=== PATIENT | female | born 1935 | race Caucasian/White ===

== ENCOUNTER 2017-05-31 11:46 | Inpatient (IN) | payer OTHER ==
[2017-05-31] VITALS (12 sets, daily range): BP systolic 82–106; BP diastolic 45–68; PULSE 67–82; TEMP 36.5–36.9; O2SAT 95–100; Ht 157.5 cm; Wt 57.6 kg
[~2017-05-31] VITALS: Ht 157.5 cm; Wt 57.6 kg
[~2017-05-31 11:46] MED LIST: ASPI1TAB83 PO; ATOR-24 PO; BROM0.07 OPR; COEN200C4 PO; GLUCTAB7 PO; MULT-506 PO; PRED1SUS3 OPR
[2017-05-31] MEDS ORDERED: SODIUM CHLORIDE 0.9% 1000ML 1,000 ML IV STA (11:51)
[2017-05-31] MEDS ORDERED: SODIUM CHLORIDE 0.9% 250ML 250 ML IV STA (11:51)
--- NOTE | 2017-05-31 12:06 | EMERGENCY ROOM VISIT NOTE ---
History Report prepared by Case: Maria Fernanda Cheung Under the Supervision of: Dr. Antonietta Najera M.D. First contact with patient: 11:43 Stated Complaint: gi bleed History of Present Illness The patient is an 81 year old female who presents to the Emergency Room with complaints of persistent vomiting that began yesterday. The patient states that she has a history of a stented coronary artery and is on 81 mg of aspirin daily. She states that over the past few days she has noticed abdominal pain so she stopped taking her aspirin. The patient denies any current abdominal pain. She states that yesterday she began noticing melanotic stools and began vomiting. The patient denies any history of previous GI bleeds and denies being on any other anti-coagulants. She denies any history of atrial fibrillation. The patient notes a slight fever last evening. She denies any choking from her emesis and denies any shortness of breath. The patient denies any previous blood transfusion. She reports dizziness upon standing. The patient reports nausea en-route to the emergency department and nursing staff reports that the patient was given 4 mg of Zofran which alleviated her nausea. The patient denies any history of atrial fibrillation. She denies any history of smoking. The patient states that she has had previous colonoscopies. Source of History: patient, nursing staff Onset: yesterday Position: other (global) Quality: other (vomiting) Timing: other (persistent) Associated Symptoms: + nausea, + melena, No abdominal pain Review of Systems See HPI for pertinent positives & negatives. A total of 10 systems reviewed and were otherwise negative. Past Medical & Surgical Medical Problems: (1) Hyperlipemia Surgical Problems: (1) Stented coronary artery Family History Noncontributory secondary to age Social History Smoking Status: Never Smoker Marital Status: Housing Status: lives with family Occupation Status: retired Current/Historical Medications Scheduled Aspirin (Aspirin), 81 MG PO QPM Atorvastatin (Lipitor), 40 MG PO QPM Allergies Coded Allergies: NO KNOWN DRUG ALLERGIES (Verified Allergy, Unknown, ., 05/31/17) Physical Exam Vital Signs Date Time Temp Pulse Resp B/P (MAP) Pulse Ox O2 Delivery O2 Flow Rate FiO2 05/31/17 14:32 36.6 72 16 93/53 100 3.0 05/31/17 14:17 36.6 69 16 95/48 100 3.0 05/31/17 14:06 36.8 75 16 102/52 95 3.0 05/31/17 13:55 36.6 77 16 106/48 97 Nasal Cannula 3.0 05/31/17 13:51 36.6 70 16 106/48 97 3.0 05/31/17 13:50 36.5 69 16 100/50 96 3.0 05/31/17 13:46 36.5 67 16 100/50 96 3.0 05/31/17 13:41 36.6 68 16 102/52 100 3.0 05/31/17 13:32 70 05/31/17 13:19 100 Nasal Cannula 2.0 05/31/17 12:46 70 16 100/47 100 Nasal Cannula 2.0 05/31/17 12:32 78 16 108/47 98 Nasal Cannula 05/31/17 12:13 82 05/31/17 12:06 84 18 97/65 92 Nasal Cannula 3.0 05/31/17 11:59 36.8 86 18 107/60 93 Nasal Cannula 2.0 Physical Exam Vital signs reviewed. Mildly hypoxic, mildly hypotensive General: Well-appearing female, in no significant distress. Pale HEENT: Dry blood in hair, some dry blood on naris. No scleral icterus, PERRLA, neck supple. Atraumatic. Cardiovascular: Regular rate and rhythm, no extra sounds. Pulmonary: Clear to auscultation bilaterally, normal work of breathing. Abdomen: Soft, nontender, nondistended, positive bowel sounds. Rectal: Dark, melanotic, guaiac positive stools. Musculoskeletal: Atraumatic, no peripheral edema. Neurologic: Patient awake alert and oriented x 3 Skin: Warm, dry, no rash Medical Decision & Procedures ER Provider Diagnostic Interpretation: X-ray results as stated below per interpretation by me and the radiologist: CHEST ONE VIEW PORTABLE CLINICAL HISTORY: UGI dyspnea COMPARISON STUDY: No previous studies for comparison. FINDINGS: The bones soft tissues and hemidiaphragms are normal. The cardiomediastinal silhouette is normal. The lungs are clear. The pulmonary vasculature is normal. IMPRESSION: Negative chest. The above report was generated using voice recognition software. It may contain grammatical, syntax or spelling errors. Electronically signed by: Bud Rich M.D. 05/31/2017 12:09 PM Dictated Date/Time: 05/31/2017 12:08 PM Laboratory Results 05/31/17 11:40 Red Blood Count 3.68, Mean Corpuscular Volume 88.0, Mean Corpuscular Hemoglobin 29.6, Mean Corpuscular Hemoglobin Concent 33.6, Mean Platelet Volume 9.7, Neutrophils (%) (Auto) 82.6, Lymphocytes (%) (Auto) 12.1, Monocytes (%) (Auto) 4.9, Eosinophils (%) (Auto) 0.0, Basophils (%) (Auto) 0.2, Neutrophils # (Auto) 12.38, Lymphocytes # (Auto) 1.82, Monocytes # (Auto) 0.73, Eosinophils # (Auto) 0.00, Basophils # (Auto) 0.03 05/31/17 11:40 Test 05/31/17 11:40 05/31/17 11:59 White Blood Count 14.99 K/uL (4.8-10.8) Red Blood Count 3.68 M/uL (4.2-5.4) Hemoglobin 10.9 g/dL (12.0-16.0) Hematocrit 32.4 % (37-47) Mean Corpuscular Volume 88.0 fL (80-100) Mean Corpuscular Hemoglobin 29.6 pg (25-34) Mean Corpuscular Hemoglobin Concent 33.6 g/dl (32-36) Platelet Count 247 K/uL (130-400) Mean Platelet Volume 9.7 fL (7.4-10.4) Neutrophils (%) (Auto) 82.6 % Lymphocytes (%) (Auto) 12.1 % Monocytes (%) (Auto) 4.9 % Eosinophils (%) (Auto) 0.0 % Basophils (%) (Auto) 0.2 % Neutrophils # (Auto) 12.38 K/uL (1.4-6.5) Lymphocytes # (Auto) 1.82 K/uL (1.2-3.4) Monocytes # (Auto) 0.73 K/uL (0.11-0.59) Eosinophils # (Auto) 0.00 K/uL (0-0.5) Basophils # (Auto) 0.03 K/uL (0-0.2) RDW Standard Deviation 46.1 fL (36.4-46.3) RDW Coefficient of Variation 14.2 % (11.5-14.5) Immature Granulocyte % (Auto) 0.2 % Immature Granulocyte # (Auto) 0.03 K/uL (0.00-0.02) Prothrombin Time 10.3 SECONDS (9.0-12.0) Prothromb Time International Ratio 1.0 (0.9-1.1) Activated Partial Thromboplast Time 21.5 SECONDS (21.0-31.0) Partial Thromboplastin Ratio 0.8 Est Creatinine Clear Calc Drug Dose 27.3 ml/min Estimated GFR () 44.9 Estimated GFR (Non- 38.7 BUN/Creatinine Ratio 24.5 (10-20) Calcium Level 9.0 mg/dl (8.5-10.1) Total Bilirubin 0.5 mg/dl (0.2-1) Direct Bilirubin 0.1 mg/dl (0-0.2) Aspartate Amino Transf (AST/SGOT) 26 U/L (15-37) Alanine Aminotransferase (ALT/SGPT) 30 U/L (12-78) Alkaline Phosphatase 86 U/L (45-117) Total Creatine Kinase 152 U/L (26-192) Creatine Kinase MB 2.1 ng/ml (0.5-3.6) Creatine Kinase MB Ratio 1.4 (0-3.0) Total Protein 6.8 gm/dl (6.4-8.2) Albumin 3.6 gm/dl (3.4-5.0) Bedside Hemoglobin 8.8 g/dl (12.0-16.0) Bedside Hematocrit 26 % (37-47) Bedside Sodium 142 mEq/L (135-144) Bedside Potassium 4.2 mEq/L (3.3-5.0) Bedside Chloride 107 mEq/L (101-112) Bedside Total CO2 23 mEq/l (24-31) Anion Gap 17.0 mmol/L (16-25) Bedside Blood Urea Nitrogen 28 mg/dl (7-18) Bedside Creatinine 1.1 mg/dl (0.6-1.3) Bedside Glucose (other) 128 mg/dl (70-99) Bedside Ionized Calcium (Yareli) 1.11 mmol/l (1.12-1.32) Laboratory results per my review. Medications Administered Medications (Trade) Dose Ordered Sig/Lashay Route Start Time Stop Time Status Last Admin Dose Admin Sodium Chloride 250 ml @ 999 mls/hr Q16M STAT IV 05/31/17 11:51 05/31/17 12:06 DC 05/31/17 11:51 999 MLS/HR Sodium Chloride 1,000 ml @ 125 mls/hr Q8H STAT IV 05/31/17 11:51 05/31/17 19:50 05/31/17 12:30 125 MLS/HR Pantoprazole Sodium (Protonix IV Bolus/Drip) 1 ea NOW STAT IV 05/31/17 11:51 05/31/17 11:54 DC 05/31/17 12:31 1 EA Pantoprazole Sodium 80 mg/ Dextrose 120 ml @ 480 mls/hr 1230 IV 05/31/17 12:30 05/31/17 12:44 DC 05/31/17 12:28 480 MLS/HR Pantoprazole Sodium 40 mg/ Dextrose 100 ml @ 20 mls/hr Q5H IV 05/31/17 12:45 05/31/17 17:44 05/31/17 12:31 20 MLS/HR ECG Indication: other (GI bleed) Rate (beats per minute): 86 Findings: nonspecific-ST abn (most prominent in lateral leads), prolonged QT, other (QTC 478) ED Course 1150: Past medical records reviewed. The patient was evaluated in room B1. A complete history and physical examination was performed. 1151: Ordered Pantoprazole Sodium 1 ea IV, Sodium Chloride 1000 ml @ 125 mls/hr IV, Sodium Chloride 250 mls/hr IV. 1158: At this time, I explained the risks and benefits of blood transfusions to the patient at this time. She verbalized completer understanding and agreement. She signed the consent at this time. 1211: I discussed the patients case with Dr. Arizmendi, Gastroenterology. He states that the patient should be evaluated for further treatment and he will come consult the patient. 1214: I reevaluated the patient and she is resting comfortably. I discussed the exam findings with her and I discussed the treatment plan. She verbalized complete understanding and agreement. She is going to be evaluated for further treatment. 1221: I discussed the patients case with Dr. Rodriguez, [facility] She is going to evaluate the patient for further treatment. 1230: Ordered Pantoprazole Sodium 80 mg/Dextrose 120 ml @ 480 mls/hr IV. 1245: Ordered Pantoprazole Sodium 40 mg/Dextrose 100 ml @ 20 mls/hr IV. Medical Decision Differential diagnosis: Etiologies such as diverticulosis, AVM, coagulopathy, colitis, inflammatory bowel disease, malignancy, Orquidea-Meyer tear, esophagitis, peptic ulcer disease , variceal bleed, gastritis, epistaxis, fissure, hemorrhoids, as well as others were entertained. This patient was evaluated and appeared to be in no significant distress. IV access was obtained and laboratory work was drawn. The patient was placed on the skip hoist engineer. Patient is found to be hypotensive and pale. An i-STAT was performed and reveals a hemoglobin of 8.8. Patient was started on IV hydration. She was type and cross for 2 units. Patient was consented for blood products. IV Protonix was initiated. The patient is no longer vomiting. She she does have guaiac positive melanotic stool. The patient does take daily aspirin secondary to cardiac condition. This may be an NSAID-induced ulceration. I have contacted Dr. Arizmendi of [facility]. He has agreed to evaluate the patient for endoscopy. One unit of PRBCs was initiated due to the patient's continued hypotension and hypoxia on room air. Dr. Rodriguez of the hospitalist service was consulted and will evaluate the patient for admission. Medication Reconcilliation Current Medication List: was personally reviewed by me Blood Pressure Screening Patient's blood pressure: Low blood pressure The low blood pressure believed to be situational and is receiving a blood transfusion. Consults Time Called: 1210 Consulting Physician: Dr. Arizemndi, Gastroenterology Returned Call: 1211 I discussed the patients case with Dr. Arizmendi, Gastroenterology. He states that the patient should be evaluated for further treatment and he will come consult the patient. Additional Consults: Time Called: 1213 Consulted Physician: CAITLYN Borja Returned Call: 1221 Additional Comments: I discussed the patients case with CAITLYN Borja. She is going to evaluate the patient for further treatment. Impression Primary Impression: Upper GI bleeding Critical Care I have personally spent greater than 45 minutes of critical care time in the direct management of this patient. This includes bedside care, interpretation of diagnostic studies, and testing, discussion with consultants, patient, and family members, and other required patient management activities. This 45 minutes is in excess of all separately billable procedures. Scribe Attestation The scribe's documentation has been prepared under my direction and personally reviewed by me in its entirety. I confirm that the note above accurately reflects all work, treatment, procedures, and medical decision making performed by me. Departure Information Dispostion Being Evaluated By Hospitalist Referrals Zhou Denise M.D. (PCP)
--- NOTE | 2017-05-31 12:10 | DIAGNOSTIC IMAGING REPORT ---
CHEST ONE VIEW PORTABLE CLINICAL HISTORY: UGI dyspnea COMPARISON STUDY: No previous studies for comparison. FINDINGS: The bones soft tissues and hemidiaphragms are normal. The cardiomediastinal silhouette is normal. The lungs are clear. The pulmonary vasculature is normal. IMPRESSION: Negative chest. The above report was generated using voice recognition software. It may contain grammatical, syntax or spelling errors. Electronically signed by: Bud Rich M.D. 05/31/2017 12:09 PM Dictated Date/Time: 05/31/2017 12:08 PM
[2017-05-31 12:13] LABS: ISTAT CREATININE 1.1 mg/dl (0.6-1.3); ISTAT HEMOGLOBIN 8.8 g/dl (12.0-16.0); ISTAT IONIZED CALCIUM 1.11 mmol/l (1.12-1.32)
[2017-05-31 12:18] LABS: BASO % 0.2 %; BASO ABS # 0.03 K/uL (0-0.2); COMPLETE YES; HEMATOCRIT 32.4 % (37-47); IG% 0.2 %; LYMPH % 12.1 %; LYMPH ABS # 1.82 K/uL (1.2-3.4); MEAN CORPUSCULAR HEMOGLOBIN 29.6 pg (25-34); MEAN CORPUSCULAR HGB CONC 33.6 g/dl (32-36); MEAN PLATELET VOLUME 9.7 fL (7.4-10.4); MONO % 4.9 %; NEUT % 82.6 %; PLATELET COUNT 247 K/uL (130-400); RED BLOOD COUNT 3.68 M/uL (4.2-5.4); WHITE BLOOD COUNT 14.99 K/uL (4.8-10.8)
[2017-05-31 12:24] LABS: PARTIAL THROMBOPLASTIN RATIO 0.8; PROTHROMBIN TIME (PATIENT) 10.3 SECONDS (9.0-12.0)
[2017-05-31] MEDS ORDERED: PANTOprazole INJ 80 MG in DEXTROSE 5% 100ML IV SCH (12:30)
[2017-05-31 12:34] LABS: BUN/CREATININE RATIO 24.5 (10-20); CREATININE 1.3 mg/dl (0.60-1.20); POTASSIUM 4.6 mmol/L (3.5-5.1)
[2017-05-31 12:40] LABS: CKMB/CK RATIO 1.4 (0-3.0)
[2017-05-31] MEDS ORDERED: PANTOprazole INJ 40 MG in DEXTROSE 5% 100ML IV SCH (12:45)
[2017-05-31] MEDS ORDERED: MAGNESIUM HYDROXIDE SUSP 30 ML UDC PO PRN (13:30)
[2017-05-31] MEDS ORDERED: ONDANSETRON INJ 2 MG/ML 2 ML VIAL IV PRN ×2 (13:30→15:45)
[2017-05-31] MEDS ORDERED: ACETAMINOPHEN 325 MG TAB PO PRN (13:30)
--- NOTE | 2017-05-31 13:44 | History and Physical ---
History & Physical Date & Time of Service: May 31, 2017 at 13:33 Chief Complaint: gi bleed Primary Care Physician: Zhou Denise M.D. History of Present Illness Source: patient, family 81 y/o F c/o bloody emesis. Pt states that for the last few days she had has some lower abd pain. She would take an antacid and it would go away and not return until the next day. She does not know what was causing it, but states she had been able to eat without any pain. She takes a daily aspirin, so she stopped this at the onset of pain. Yesterday afternoon she had lower abd pain and an episode of emesis that she thought was red due to a medication that she takes, however now she thinks it may have been a bit of blood. Last night, she had a bowel movement that she states was without stool, but purely dark, black, bloody clots. Then she had an episode of emesis that was bright red. This morning she did have a bit of black and bloody stool and a bit of red emesis, but neither episode was as intense as last night. She has been lightheaded today. At present, she feels tired but if she does not move she feels otherwise fine. She has no abd pain or nausea. She states if she sits up she get lightheaded. Pt denies fever, SOB, chest pain, LE pain or swelling. Pt states that her last c-scope was 6 years ago and WNL. She does have remote hx of polyps, but none seen on her last c-scopes. She states that she had an MRI of her abd/pelvis a few years ago. It showed some spots on her pancreas and some gallstones. She was recommended at that time to be seen at [facility] for some sort of testing, but she declined. She has no prior hx of GIB. Past Medical/Surgical History Medical Problems: (1) Hyperlipemia Status: Chronic Surgical Problems: (1) Stented coronary artery Status: Resolved Family History Family history was reviewed; no changes noted. Denies GIB or other GI pathology, cancer Social History Smoking Status: Never Smoker Alcohol Use: occasionally (1-2 drinks one day a week) Drug Use: none Marital Status: Occupational Status: retired Multi-Drug Resistant Organisms History of MDRO: No Allergies Coded Allergies: NO KNOWN DRUG ALLERGIES (Verified Allergy, Unknown, ., 05/31/17) Home Medications Scheduled Aspirin (Aspirin), 81 MG PO QPM Atorvastatin (Lipitor), 40 MG PO QPM Review of Systems Reviewed and otherwise neg Physical Exam Vital Signs Date Time Temp Pulse Resp B/P (MAP) Pulse Ox O2 Delivery O2 Flow Rate FiO2 05/31/17 13:32 70 05/31/17 13:19 100 Nasal Cannula 2.0 05/31/17 12:46 70 16 100/47 100 Nasal Cannula 2.0 05/31/17 12:32 78 16 108/47 98 Nasal Cannula 05/31/17 12:13 82 05/31/17 12:06 84 18 97/65 92 Nasal Cannula 3.0 05/31/17 11:59 36.8 86 18 107/60 93 Nasal Cannula 2.0 General Appearance: WD/WN, no apparent distress Head: normocephalic, atraumatic Eyes: normal inspection, EOMI ENT: hearing grossly normal Neck: supple Respiratory/Chest: normal breath sounds, no respiratory distress Cardiovascular: regular rate, rhythm, no edema Abdomen/GI: non tender, soft Extremities/Musculoskelatal: no calf tenderness, no pedal edema Neurologic/Psych: alert, normal mood/affect, oriented x 3 Skin: warm/dry, + pallor Diagnostics Laboratory Results Results Past 24 Hours Test 05/31/17 11:40 05/31/17 11:59 Range/Units White Blood Count 14.99 4.8-10.8 K/uL Red Blood Count 3.68 4.2-5.4 M/uL Hemoglobin 10.9 12.0-16.0 g/dL Hematocrit 32.4 37-47 % Mean Corpuscular Volume 88.0 80-100 fL Mean Corpuscular Hemoglobin 29.6 25-34 pg Mean Corpuscular Hemoglobin Concent 33.6 32-36 g/dl Platelet Count 247 130-400 K/uL Mean Platelet Volume 9.7 7.4-10.4 fL Neutrophils (%) (Auto) 82.6 % Lymphocytes (%) (Auto) 12.1 % Monocytes (%) (Auto) 4.9 % Eosinophils (%) (Auto) 0.0 % Basophils (%) (Auto) 0.2 % Neutrophils # (Auto) 12.38 1.4-6.5 K/uL Lymphocytes # (Auto) 1.82 1.2-3.4 K/uL Monocytes # (Auto) 0.73 0.11-0.59 K/uL Eosinophils # (Auto) 0.00 0-0.5 K/uL Basophils # (Auto) 0.03 0-0.2 K/uL RDW Standard Deviation 46.1 36.4-46.3 fL RDW Coefficient of Variation 14.2 11.5-14.5 % Immature Granulocyte % (Auto) 0.2 % Immature Granulocyte # (Auto) 0.03 0.00-0.02 K/uL Prothrombin Time 10.3 9.0-12.0 SECONDS Prothromb Time International Ratio 1.0 0.9-1.1 Activated Partial Thromboplast Time 21.5 21.0-31.0 SECONDS Partial Thromboplastin Ratio 0.8 Sodium Level 141 136-145 mmol/L Potassium Level 4.6 3.5-5.1 mmol/L Chloride Level 104 98-107 mmol/L Carbon Dioxide Level 28 21-32 mmol/L Anion Gap 9.0 17.0 16-25 mmol/L Blood Urea Nitrogen 32 7-18 mg/dl Creatinine 1.30 0.60-1.20 mg/dl Est Creatinine Clear Calc Drug Dose 27.3 ml/min Estimated GFR () 44.9 Estimated GFR (Non- 38.7 BUN/Creatinine Ratio 24.5 10-20 Random Glucose 142 70-99 mg/dl Calcium Level 9.0 8.5-10.1 mg/dl Total Bilirubin 0.5 0.2-1 mg/dl Direct Bilirubin 0.1 0-0.2 mg/dl Aspartate Amino Transf (AST/SGOT) 26 15-37 U/L Alanine Aminotransferase (ALT/SGPT) 30 12-78 U/L Alkaline Phosphatase 86 45-117 U/L Total Creatine Kinase 152 26-192 U/L Creatine Kinase MB 2.1 0.5-3.6 ng/ml Creatine Kinase MB Ratio 1.4 0-3.0 Total Protein 6.8 6.4-8.2 gm/dl Albumin 3.6 3.4-5.0 gm/dl Bedside Hemoglobin 8.8 12.0-16.0 g/dl Bedside Hematocrit 26 37-47 % Bedside Sodium 142 135-144 mEq/L Bedside Potassium 4.2 3.3-5.0 mEq/L Bedside Chloride 107 101-112 mEq/L Bedside Total CO2 23 24-31 mEq/l Bedside Blood Urea Nitrogen 28 7-18 mg/dl Bedside Creatinine 1.1 0.6-1.3 mg/dl Bedside Glucose (other) 128 70-99 mg/dl Bedside Ionized Calcium (Yareli) 1.11 1.12-1.32 mmol/l CXR normal Impression Assessment and Plan 81 y/o F who was admitted on 05/31 for melanotic stools and hematemesis melanotic stools and hematemesis: likely upper GIB with hypoTN GI c/s pending NPO with IVF Protonix drip Hb stable at 10.4, will repeat and monitor LFTs WNL INR WNL Hx of aspirin use, self d/c'd at onset of sx ARF: likely related to dehydration, monitor on IVF Leukocytosis: possible stress reaction, no hx of fever Monitor CXR neg CAD: hx of stent, will need to resume aspirin when able Holding statin Other: Full code. Does have a living will that states DNR/DNI if incapacitated and quite clear that she does not want any form of prolonged mechanical life support SCDs for DVT proph given above NPO Level of Care Telemetry Advanced Directives Existing Living Will: Yes Existing Power of Maintenance Custodian: No Resuscitation Status FULL RESUSCITATION VTE Prophylaxis VTE Risk Assessment Done? Y/N: Yes Risk Level: Low
--- NOTE | 2017-05-31 14:22 | Gastrointestinal Consultation ---
Gastrointestinal Consultation Date of Consultation: May 31, 2017 Attending Physician: DR Agnes Rodriguez Consulting Physician: Dr Dinesh Arizmendi Reason for Consultation: GI bleeding History of Present Illness Patient is a 81 year old female with a chief complaint of vomiting blood and passing black stools. Son with patient for H and P. 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 Offered EUS which she intially wanted then did not schedule and did not follow for any Xray testing followup. Hx of colon polyps (no records) per patient report by Dr Taveras in [place] with last scope about 6 years ago apparently normal. Is on baby ASA daily for CAD with stent and takes full strenght ASA occosionally for headaches. Yesterday at 3 pm small bright red emesis. Then overnight large quantities of bright and dark red emesis followed by multiple black tarry stools. Last emesis this am 1030 no blood bile colored. Last BM this am about 0630. Nothing solid to eat since last night. Last liquid was ice chips at noon. In ER had rectal with black heme pos stools. Lower abdominal pain last few days and stopped ASA but no abd pain at present. NO GERD, NO fever, maybe couple lb weight loss over last week. No EGD in the past. SBP low at 97 shortly after arrival in ER. Pint of blood hanging at present. CXR neg, PT/PTT and plts normal. HGb 10.9 and 8.8 2 different methods with Hgb 13 noted in 2012 most recent in [facility]. Past Medical/Surgical History Medical Problems: (1) Upper GI bleeding Status: Acute Family History Noncontributory secondary to age Social History Smoking Status: Never Smoker Drug Use: none Marital Status: Occupation Status: retired Allergies Coded Allergies: NO KNOWN DRUG ALLERGIES (Verified Allergy, Unknown, ., 05/31/17) Current Medications Home Meds and Scripts Medications Dose Route/Sig Max Daily Dose Days Date Category Lipitor (Atorvastatin Calcium) 40 Mg Tab 40 Mg PO QPM 12/29/13 Reported Aspirin 81 Mg Tab 81 Mg PO QPM 12/29/13 Reported Review of Systems Ten ROS negative. Physical Exam Date Time Temp Pulse Resp B/P (MAP) Pulse Ox O2 Delivery O2 Flow Rate FiO2 7/30/17 14:06 36.8 75 16 102/52 95 3.0 05/31/17 13:55 36.6 77 16 106/48 97 Nasal Cannula 3.0 05/31/17 13:51 36.6 70 16 106/48 97 3.0 05/31/17 13:50 36.5 69 16 100/50 96 3.0 05/31/17 13:46 36.5 67 16 100/50 96 3.0 05/31/17 13:41 36.6 68 16 102/52 100 3.0 05/31/17 13:32 70 05/31/17 13:19 100 Nasal Cannula 2.0 05/31/17 12:46 70 16 100/47 100 Nasal Cannula 2.0 05/31/17 12:32 78 16 108/47 98 Nasal Cannula 05/31/17 12:13 82 05/31/17 12:06 84 18 97/65 92 Nasal Cannula 3.0 05/31/17 11:59 36.8 86 18 107/60 93 Nasal Cannula 2.0 General Appearance: WD/WN, no apparent distress Eyes: normal inspection ENT: normal ENT inspection, pharynx normal Neck: supple, thyroid normal Respiratory/Chest: lungs clear, no respiratory distress Cardiovascular: regular rate, rhythm, no murmur Abdomen: normal bowel sounds, non tender, soft, no organomegaly, no pulsatile mass Neurologic/Psych: traffic checker II-XII nml as tested, oriented x 3 Skin: normal color, warm/dry Laboratory Results Last 24 Hours Test 05/31/17 11:40 05/31/17 11:59 White Blood Count 14.99 K/uL Red Blood Count 3.68 M/uL Hemoglobin 10.9 g/dL Hematocrit 32.4 % Mean Corpuscular Volume 88.0 fL Mean Corpuscular Hemoglobin 29.6 pg Mean Corpuscular Hemoglobin Concent 33.6 g/dl Platelet Count 247 K/uL Mean Platelet Volume 9.7 fL Neutrophils (%) (Auto) 82.6 % Lymphocytes (%) (Auto) 12.1 % Monocytes (%) (Auto) 4.9 % Eosinophils (%) (Auto) 0.0 % Basophils (%) (Auto) 0.2 % Neutrophils # (Auto) 12.38 K/uL Lymphocytes # (Auto) 1.82 K/uL Monocytes # (Auto) 0.73 K/uL Eosinophils # (Auto) 0.00 K/uL Basophils # (Auto) 0.03 K/uL RDW Standard Deviation 46.1 fL RDW Coefficient of Variation 14.2 % Immature Granulocyte % (Auto) 0.2 % Immature Granulocyte # (Auto) 0.03 K/uL Prothrombin Time 10.3 SECONDS Prothromb Time International Ratio 1.0 Activated Partial Thromboplast Time 21.5 SECONDS Partial Thromboplastin Ratio 0.8 Sodium Level 141 mmol/L Potassium Level 4.6 mmol/L Chloride Level 104 mmol/L Carbon Dioxide Level 28 mmol/L Anion Gap 9.0 mmol/L 17.0 mmol/L Blood Urea Nitrogen 32 mg/dl Creatinine 1.30 mg/dl Est Creatinine Clear Calc Drug Dose 27.3 ml/min Estimated GFR () 44.9 Estimated GFR (Non- 38.7 BUN/Creatinine Ratio 24.5 Random Glucose 142 mg/dl Calcium Level 9.0 mg/dl Total Bilirubin 0.5 mg/dl Direct Bilirubin 0.1 mg/dl Aspartate Amino Transf (AST/SGOT) 26 U/L Alanine Aminotransferase (ALT/SGPT) 30 U/L Alkaline Phosphatase 86 U/L Total Creatine Kinase 152 U/L Creatine Kinase MB 2.1 ng/ml Creatine Kinase MB Ratio 1.4 Total Protein 6.8 gm/dl Albumin 3.6 gm/dl Bedside Hemoglobin 8.8 g/dl Bedside Hematocrit 26 % Bedside Sodium 142 mEq/L Bedside Potassium 4.2 mEq/L Bedside Chloride 107 mEq/L Bedside Total CO2 23 mEq/l Bedside Blood Urea Nitrogen 28 mg/dl Bedside Creatinine 1.1 mg/dl Bedside Glucose (other) 128 mg/dl Bedside Ionized Calcium (Yareli) 1.11 mmol/l Impression Impression and Plan Hematemesis--UGI bleed likely PUD from ASA use. Plan urgent EGD with diagnostic and therapeutic intent. Procedure and risks explained to patient and son which include but not limited to medication and anesthesia risks, bleeding , perforation, aspiration, and missed lesions. Tailor acid reduction therapy to findings. 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
[2017-05-31] MEDS ORDERED: LIDOCAINE HCL 2% 2 ML VIAL (20MG/ML) ONE (14:27)
[2017-05-31] MEDS ORDERED: ETOMIDATE 2 MG/ML 20 ML VIAL IV ONE (14:27)
[2017-05-31] MEDS ORDERED: SUCCINYLCHOLINE 100MG/5ML SYR IV ONE (14:27)
[2017-05-31] MEDS ORDERED: MIDAZOLAM HCL 1 MG/ML 2ML VIAL ONE (14:29)
[2017-05-31] MEDS ORDERED: ONDANSETRON INJ 2 MG/ML 2 ML VIAL ONE (15:17)
--- NOTE | 2017-05-31 15:32 | GI REPORT ---
Procedure Date: 05/31/2017 2:49 PM Procedure: Upper GI endoscopy Indications: Hematemesis, Melena Medicines: General Anesthesia Complications: No immediate complications. Estimated Blood Loss: Estimated blood loss: none. Procedure: Pre-Anesthesia Assessment: - The risks and benefits of the procedure and the sedation options and risks were discussed with the patient. All questions were answered and informed consent was obtained. - Patient identification and proposed procedure were verified prior to the procedure by the physician, the nurse, the bouffant curtain machine tender and the medical coding technician. The procedure was verified in the procedure room. After obtaining informed consent, the endoscope was passed under direct vision. Throughout the procedure, the patient's blood pressure, pulse, and oxygen saturations were monitored continuously. The Scope was introduced through the mouth, and advanced to the second part of duodenum. The upper GI endoscopy was accomplished without difficulty. The patient tolerated the procedure well. Procedure and risks explained to patient which include but not limited to medication reaction, bleeding, perforation, aspiration , and missed lesions. Judicious gas insufflation was used and gas removal done on the way out. The lumen was always visualized when advancing the scope. Prep was good. Washes and suctioning used as needed to get good visualization of the mucosa. Retroflexion to look at the fundus and cardia of the stomach and GE junction was done. Findings: The Z-line was irregular and was found 32 cm from the incisors. A 2 cm hiatus hernia was present. Two non-bleeding cratered gastric ulcers with a clean ulcer base (Juan Ramon Class III) were found in the gastric antrum. The largest lesion was 10 mm in largest dimension with few small flat red areas suggestive of recent bleeding but nothing to cauterize or clip or inject. The examined duodenum was normal. Trace red heme noted in fundus washed and suctioned. The exam was otherwise without abnormality. Impression: - Z-line irregular, 32 cm from the incisors. - 2 cm hiatus hernia. - Non-bleeding gastric ulcers with a clean ulcer base (Juan Ramon Class III) but with stigmata of recent bleeding. - Normal examined duodenum. - Trace red heme noted in fundus washed and suctioned. - The examination was otherwise normal. - No specimens collected. Recommendation: - [facility] patient [facility] for [facility] care. - The findings and recommendations were discussed with the patient's family--son. - Will need to be on Protonix 40 mg bid as outpt and off ASA ideally for 6-8 weeks with repeat EGD then. Check stool for H.pylori. No biopsied done secondary to recent bleeding. Dniesh Arizmendi M.D. Dinesh Arizmendi MD 05/31/2017 3:31:51 PM This report has been signed electronically. Note Initiated On: 05/31/2017 2:49 PM I attest to the content of the Intraoperative Record and orders documented therein, exceptions below
--- NOTE | 2017-05-31 15:40 | Progress Note ---
Progress Note Date of Service May 31, 2017. Progress Note Pt awake and alert post EGD. See report. Denies abd pain. Dr Taveras assuming GI care tomorrow 06/01/17 at 0730.
[2017-05-31] MEDS ORDERED: ATROPINE SULFATE 0.1 MG/ML 5ML SYR IV PRN (15:45)
[2017-05-31] MEDS ORDERED: FENTANYL CITRATE INJ 50 MCG/1 ML 2 ML VIAL IV PRN (15:45)
[2017-05-31] MEDS ORDERED: EpHEDrine SULFATE INJ 50 MG/ML AMP IV PRN (15:45)
--- NOTE | 2017-05-31 16:00 | Anesthesiology Progress Note ---
Anesthesia Post Op Note Date & Time May 31, 2017 at 16:00 Vital Signs Pain Intensity: 0 Vital Signs Past 12 Hours Date Time Temp Pulse Resp B/P (MAP) Pulse Ox O2 Delivery O2 Flow Rate FiO2 05/31/17 15:53 74 18 05/31/17 15:53 73 18 100 05/31/17 15:51 106/59 05/31/17 15:48 36.3 73 17 106/59 (81) 100 Nasal Cannula 10 05/31/17 15:47 74 18 100 05/31/17 15:47 76 21 100 05/31/17 15:46 104/55 05/31/17 15:41 111/59 05/31/17 15:39 80 22 100 05/31/17 15:39 80 22 05/31/17 15:38 75 13 05/31/17 15:38 75 13 100 05/31/17 15:36 110/61 05/31/17 15:33 118/55 05/31/17 15:32 80 23 98 05/31/17 15:32 79 21 100 05/31/17 15:31 73/61 05/31/17 15:26 118/62 05/31/17 15:24 123/56 05/31/17 15:22 36.4 86 18 123/56 100 Mask 10 05/31/17 14:58 36.6 72 18 93/53 100 05/31/17 14:32 36.6 72 16 93/53 100 3.0 05/31/17 14:17 36.6 69 16 95/48 100 3.0 05/31/17 14:06 36.8 75 16 102/52 95 3.0 05/31/17 13:55 36.6 77 16 106/48 97 Nasal Cannula 3.0 05/31/17 13:51 36.6 70 16 106/48 97 3.0 05/31/17 13:50 36.5 69 16 100/50 96 3.0 05/31/17 13:46 36.5 67 16 100/50 96 3.0 05/31/17 13:41 36.6 68 16 102/52 100 3.0 05/31/17 13:32 70 05/31/17 13:19 100 Nasal Cannula 2.0 05/31/17 12:46 70 16 100/47 100 Nasal Cannula 2.0 05/31/17 12:32 78 16 108/47 98 Nasal Cannula 05/31/17 12:13 82 05/31/17 12:06 84 18 97/65 92 Nasal Cannula 3.0 05/31/17 11:59 36.8 86 18 107/60 93 Nasal Cannula 2.0 Notes Mental Status: alert / awake / arousable, participated in evaluation Pt Amnestic to Procedure: Yes Nausea / Vomiting: adequately controlled Pain: adequately controlled Airway Patency, RR, SpO2: stable & adequate BP & HR: stable & adequate Hydration State: stable & adequate Anesthetic Complications: no major complications apparent
[2017-05-31] MEDS: SODIUM CHLORIDE 0.9% 1000ML 1,000 ML IV SCH (16:28)
[2017-05-31 18:40] LABS: HEMATOCRIT 33.3 % (37-47)
[2017-06-01] VITALS (12 sets, daily range): BP systolic 72–104; BP diastolic 40–64; PULSE 71–86; TEMP 36.8–37.5; O2SAT 91–97
[2017-06-01 00:31] LABS: HEMATOCRIT 26.5 % (37-47)
[2017-06-01] MEDS: SODIUM CHLORIDE 0.9% 1000ML 1,000 ML IV SCH (00:41)
[2017-06-01 07:06] LABS: HEMATOCRIT 24.7 % (37-47); MEAN CELL VOLUME 87.6 fL (80-100); MEAN CORPUSCULAR HEMOGLOBIN 29.8 pg (25-34); MEAN PLATELET VOLUME 9.6 fL (7.4-10.4); PLATELET COUNT 129 K/uL (130-400); RED BLOOD COUNT 2.82 M/uL (4.2-5.4); WHITE BLOOD COUNT 7.12 K/uL (4.8-10.8)
[2017-06-01 07:07] LABS: CALCIUM 7.1 mg/dl (8.5-10.1); POTASSIUM 4.1 mmol/L (3.5-5.1)
[2017-06-01 07:08] LABS: ALB/GLOB RATIO 1.2 (0.9-2)
[2017-06-01 07:09] LABS: PLT ESTIMATE NORMAL
[2017-06-01] MEDS ORDERED: PANTOprazole SOD 40 MG TAB PO SCH (09:00)
--- NOTE | 2017-06-01 09:17 | Hospitalist Progress Note ---
Hospitalist Progress Note Date of Service Jun 01, 2017. Subjective Pt evaluation today including: conversation w/ patient, conversation w/ family Pt with hypotension overnight, feels a little lightheaded. No further melena or hematemesis since Sat on admission. No CP or SOB. No abd pain All Other Systems: Reviewed and Negative Objective Vital Signs Date Time Temp Pulse Resp B/P (MAP) Pulse Ox O2 Delivery O2 Flow Rate FiO2 06/01/17 08:44 37.1 75 16 83/43 95 06/01/17 08:03 Room Air 06/01/17 07:23 37.2 71 20 81/40 (54) 95 06/01/17 04:22 37.0 76 16 87/53 (64) 95 06/01/17 04:02 Room Air 06/01/17 00:46 86 20 101/58 (72) 94 Room Air 06/01/17 00:03 37.2 76 16 91 Room Air 06/01/17 00:00 Room Air 05/31/17 23:41 82 87/47 (60) 82/45 (57) 05/31/17 20:00 Room Air 05/31/17 19:14 36.9 75 18 102/68 (79) 96 Room Air 05/31/17 17:45 77 16 100/63 (75) 100 Nasal Cannula 2.0 05/31/17 16:38 36.6 81 16 102/56 (71) 96 Nasal Cannula 2.0 05/31/17 16:00 Nasal Cannula 2.0 05/31/17 15:53 74 18 05/31/17 15:53 73 18 100 05/31/17 15:51 106/59 05/31/17 15:48 36.3 73 17 106/59 (81) 100 Nasal Cannula 10 05/31/17 15:47 74 18 100 05/31/17 15:47 76 21 100 05/31/17 15:46 104/55 05/31/17 15:41 111/59 05/31/17 15:39 80 22 100 05/31/17 15:39 80 22 05/31/17 15:38 75 13 05/31/17 15:38 75 13 100 05/31/17 15:36 110/61 05/31/17 15:33 118/55 05/31/17 15:32 80 23 98 05/31/17 15:32 79 21 100 05/31/17 15:31 73/61 05/31/17 15:26 118/62 05/31/17 15:24 123/56 05/31/17 15:22 36.4 86 18 123/56 100 Mask 10 05/31/17 14:58 36.6 72 18 93/53 100 05/31/17 14:32 36.6 72 16 93/53 100 3.0 05/31/17 14:17 36.6 69 16 95/48 100 3.0 05/31/17 14:06 36.8 75 16 102/52 95 3.0 05/31/17 13:55 36.6 77 16 106/48 97 Nasal Cannula 3.0 05/31/17 13:51 36.6 70 16 106/48 97 3.0 05/31/17 13:50 36.5 69 16 100/50 96 3.0 05/31/17 13:46 36.5 67 16 100/50 96 3.0 05/31/17 13:41 36.6 68 16 102/52 100 3.0 05/31/17 13:32 70 05/31/17 13:19 100 Nasal Cannula 2.0 05/31/17 12:46 70 16 100/47 100 Nasal Cannula 2.0 05/31/17 12:32 78 16 108/47 98 Nasal Cannula 05/31/17 12:13 82 05/31/17 12:06 84 18 97/65 92 Nasal Cannula 3.0 05/31/17 11:59 36.8 86 18 107/60 93 Nasal Cannula 2.0 Physical Exam General Appearance: WD/WN, no apparent distress Eyes: sclerae normal, + pertinent finding (pale conjunctiva) ENT: hearing grossly normal, pharynx normal Neck: trachea midline Respiratory/Chest: lungs clear, normal breath sounds, no respiratory distress, no accessory muscle use Cardiovascular: regular rate, rhythm, no edema, no gallop, + systolic murmur (2 /6 at left sternal border) Abdomen: normal bowel sounds, non tender, soft, no organomegaly Extremities: non-tender, normal inspection, no pedal edema, no calf tenderness Neurologic/Psychiatric: alert, normal mood/affect, oriented x 3 Skin: warm/dry, no rash, + pallor Laboratory Results Last 24 Hours Test 05/31/17 11:40 7/30/17 11:59 05/31/17 18:28 06/01/17 00:21 White Blood Count 14.99 K/uL Red Blood Count 3.68 M/uL Hemoglobin 10.9 g/dL 11.5 g/dL 8.9 g/dL Hematocrit 32.4 % 33.3 % 26.5 % Mean Corpuscular Volume 88.0 fL Mean Corpuscular Hemoglobin 29.6 pg Mean Corpuscular Hemoglobin Concent 33.6 g/dl Platelet Count 247 K/uL Mean Platelet Volume 9.7 fL Neutrophils (%) (Auto) 82.6 % Lymphocytes (%) (Auto) 12.1 % Monocytes (%) (Auto) 4.9 % Eosinophils (%) (Auto) 0.0 % Basophils (%) (Auto) 0.2 % Neutrophils # (Auto) 12.38 K/uL Lymphocytes # (Auto) 1.82 K/uL Monocytes # (Auto) 0.73 K/uL Eosinophils # (Auto) 0.00 K/uL Basophils # (Auto) 0.03 K/uL RDW Standard Deviation 46.1 fL RDW Coefficient of Variation 14.2 % Immature Granulocyte % (Auto) 0.2 % Immature Granulocyte # (Auto) 0.03 K/uL Prothrombin Time 10.3 SECONDS Prothromb Time International Ratio 1.0 Activated Partial Thromboplast Time 21.5 SECONDS Partial Thromboplastin Ratio 0.8 Sodium Level 141 mmol/L Potassium Level 4.6 mmol/L Chloride Level 104 mmol/L Carbon Dioxide Level 28 mmol/L Anion Gap 9.0 mmol/L 17.0 mmol/L Blood Urea Nitrogen 32 mg/dl Creatinine 1.30 mg/dl Est Creatinine Clear Calc Drug Dose 27.3 ml/min Estimated GFR () 44.9 Estimated GFR (Non- 38.7 BUN/Creatinine Ratio 24.5 Random Glucose 142 mg/dl Calcium Level 9.0 mg/dl Total Bilirubin 0.5 mg/dl Direct Bilirubin 0.1 mg/dl Aspartate Amino Transf (AST/SGOT) 26 U/L Alanine Aminotransferase (ALT/SGPT) 30 U/L Alkaline Phosphatase 86 U/L Total Creatine Kinase 152 U/L Creatine Kinase MB 2.1 ng/ml Creatine Kinase MB Ratio 1.4 Total Protein 6.8 gm/dl Albumin 3.6 gm/dl Bedside Hemoglobin 8.8 g/dl Bedside Hematocrit 26 % Bedside Sodium 142 mEq/L Bedside Potassium 4.2 mEq/L Bedside Chloride 107 mEq/L Bedside Total CO2 23 mEq/l Bedside Blood Urea Nitrogen 28 mg/dl Bedside Creatinine 1.1 mg/dl Bedside Glucose (other) 128 mg/dl Bedside Ionized Calcium (Yareli) 1.11 mmol/l Test 06/01/17 06:20 White Blood Count 7.12 K/uL Red Blood Count 2.82 M/uL Hemoglobin 8.4 g/dL Hematocrit 24.7 % Mean Corpuscular Volume 87.6 fL Mean Corpuscular Hemoglobin 29.8 pg Mean Corpuscular Hemoglobin Concent 34.0 g/dl RDW Standard Deviation 50.1 fL RDW Coefficient of Variation 15.4 % Platelet Count 129 K/uL Mean Platelet Volume 9.6 fL Platelet Estimate NORMAL Sodium Level 148 mmol/L Potassium Level 4.1 mmol/L Chloride Level 117 mmol/L Carbon Dioxide Level 27 mmol/L Anion Gap 4.0 mmol/L Blood Urea Nitrogen 13 mg/dl Creatinine 1.00 mg/dl Est Creatinine Clear Calc Drug Dose 35.5 ml/min Estimated GFR () 61.6 Estimated GFR (Non- 53.2 BUN/Creatinine Ratio 13.0 Random Glucose 93 mg/dl Calcium Level 7.1 mg/dl Total Bilirubin 0.4 mg/dl Aspartate Amino Transf (AST/SGOT) 22 U/L Alanine Aminotransferase (ALT/SGPT) 20 U/L Alkaline Phosphatase 56 U/L Total Protein 4.3 gm/dl Albumin 2.3 gm/dl Globulin 2.0 gm/dl Albumin/Globulin Ratio 1.2 Assessment and Plan 81 y/o F who was admitted on 05/31 for melanotic stools and hematemesis, with anemia of acute blood loss in the setting of aspirin use for antiplatelet therapy Melanotic stools and hematemesis, anemia of acute blood loss in the setting of aspirin use for antiplatelet therapy. EGD with recently bleeding ulcers x 2 in stomach, no intervention needed.LFTs WNL INR WNL Hx of aspirin use, self d/c'd at onset of sx Hgb dropped to 8.5 today despite 1 unit PRBCs on 05/31. With hypotension to 80 systolic. -GI c/s appreciated -Clears diet and adv as per GI -Protonix drip given, now switched to PPI po bid x6-8 weeks -needs repeat EGD in 6 weeks -transfuse 1 unit PRBCs now and follow H/H this afternoon, follow BP but pt states she runs low normally Acute renal insufficiency: night guard 1.3 on admission likely related to dehydration, given IVFs--> night guard 1.0 today -follow PRP Leukocytosis: possible stress reaction, no hx of fever---> resolved Monitor CXR neg CAD: hx of stents, will need to resume aspirin when able in 6-8 weeks as per GI Holding statin but can restart now Other: Full code. Does have a living will that states DNR/DNI if incapacitated and quite clear that she does not want any form of prolonged mechanical life support SCDs for DVT proph given above
[2017-06-01 12:39] LABS: HEMATOCRIT 30.9 % (37-47)
--- NOTE | 2017-06-01 17:31 | PROGRESS NOTE ---
DATE: 06/01/2017 SUBJECTIVE: The patient reports no abdominal pain. She has had no bowel movements now for 2 days. OBJECTIVE: Patient's vital signs are normal. She is afebrile. She reports no nausea, vomiting, or melena. She is hungry. She has been on clear liquids all day. She received 2 units of blood over the last 48 hours and her hemoglobin today is 10.1. Abdomen is soft and nontender. IMPRESSION: The patient has gastric ulcers which are probably related to her aspirin use which is on hold. She is taking aspirin for a cardiac stent. Hopefully we can start this back in a few days. She is currently on IV Protonix twice a day. H. pylori is still pending as she has not produced a stool yet. PLAN: Is to check for H. pylori as soon as she passes stool. Will advance her diet to a bland regular diet at this time. Hopefully, will be able to switch to oral Protonix tomorrow. Should be able to resume her aspirin in 3-5 days. She will need a followup EGD in about 2 months.
[2017-06-01] MEDS: PANTOprazole INJ 40 MG in SYRINGE 0 ML IV SCH (20:44)
[2017-06-01] MEDS ORDERED: ATORVASTATIN 40 MG TAB PO SCH (21:00)
[2017-06-02] VITALS (7 sets, daily range): BP systolic 96–115; BP diastolic 46–67; PULSE 66–71; TEMP 36.9–37.2; O2SAT 94–97
[2017-06-02 05:45] LABS: BASO % 0.7 %; BASO ABS # 0.05 K/uL (0-0.2); COMPLETE YES; EOS % 5.4 %; HEMATOCRIT 29.8 % (37-47); IG% 0.3 %; LYMPH % 27.2 %; LYMPH ABS # 1.86 K/uL (1.2-3.4); MEAN CELL VOLUME 84.7 fL (80-100); MEAN CORPUSCULAR HEMOGLOBIN 28.1 pg (25-34); MEAN CORPUSCULAR HGB CONC 33.2 g/dl (32-36); MEAN PLATELET VOLUME 9.6 fL (7.4-10.4); MONO % 10.2 %; NEUT % 56.2 %; PLATELET COUNT 121 K/uL (130-400); RED BLOOD COUNT 3.52 M/uL (4.2-5.4); WHITE BLOOD COUNT 6.83 K/uL (4.8-10.8)
[2017-06-02 06:13] LABS: BUN/CREATININE RATIO 9.3 (10-20); CALCIUM 7.7 mg/dl (8.5-10.1); MAGNESIUM 2.2 mg/dl (1.8-2.4); POTASSIUM 3.7 mmol/L (3.5-5.1)
[2017-06-02] MEDS: PANTOprazole INJ 40 MG in SYRINGE 0 ML IV SCH (07:48)
[2017-06-02] MEDS ORDERED: ASPI1TAB83 PO ×2 (16:34)
[2017-06-02] MEDS ORDERED: PANT40TA PO ×2 (16:34)
--- NOTE | 2017-06-02 16:38 | Discharge Instructions ---
Discharge Instructions Date of Service Jun 02, 2017. Admission Reason for Admission: Upper Gi Bleed Discharge Discharge Diagnosis / Problem: Peptic Ulcer Disease, GI Bleeding,Anemia Discharge Goals Goal(s): Improve disease control, Diagnostic testing, Therapeutic intervention Activity Recommendations Activity Limitations: resume your previous activity Exercise/Sports Limitations: gradually increase as tolerated Shower/Bathe: no limitations . Instructions / Follow-Up Instructions / Follow-Up You were admitted with GI bleeding coming from ulcers in your stomach. This is likely related to Aspirin use and you should NOT take your aspirin for 2 weeks. We discussed this with your [employer], Dr. Beckford. You also need to collect a stool sample at home for Helicobacter pylori. You will be given a prescription to turn in with your sample at the lab. It is important that you take the Protonix twice daily to protect the stomach and allow the ulcers to heal. Please follow up with your PCP within 1-[address] Raygoza at [facility] within the month-his office will contact you with your appointment date and time. You will need a repeat EGD in about 6-8 weeks. Current Hospital Diet Patient's current hospital diet: Regular Diet Discharge Diet Recommended Diet: Regular Diet Procedures Procedures Performed: Esophagogastroduodenoscopy Pending Studies Studies pending at discharge: no Medical Emergencies . Who to Call and When: Medical Emergencies: If at any time you feel your situation is an emergency, please call 911 immediately. . Non-Emergent Contact Non-Emergency issues call your: Primary Care Provider, Hand Alterations Tailor Call Non-Emergent contact if: you have a fever, you have any medication questions you have abdominal pains or dark stools. If you feel lightheaded or have chest pain or bloody stools or vomit, please go immediately to the ER. . . "Provider Documentation" section prepared by Joycelyn Mcdonnell. . VTE Core Measure Inpt VTE Proph given/why not?: SCD's
--- NOTE | 2017-06-02 23:18 | GASTROENTEROLOGY PROGRESS NOTE ---
DATE: 06/02/2017 The patient underwent upper endoscopy which revealed 2 sizable gastric ulcers without visible vessels. The patient has not had a bowel movement since admission, although initially had presented with melena for a day or so. She does not use NSAIDs other than a single dose of aspirin that she is on for several years and in part is on this for coronary stent placement. The patient has not had any hematemesis, coffee-ground emesis, melena or bright red blood per rectum since endoscopy. The patient feels well, has no abdominal pain, nausea or vomiting, and diet is being advanced. MEDICATIONS: Reviewed and include pantoprazole. REVIEW OF SYSTEMS: Otherwise noncontributory based on 13-point exam. The patient has no prior history of peptic ulcer disease and has not been on any NSAIDs. PHYSICAL EXAMINATION: VITAL SIGNS: The patient is afebrile, blood pressure 133/84, heart rate 66, respirations 18, 95% on room air. GENERAL: The patient is awake, alert and oriented x3. HEENT: Sclerae anicteric. Conjunctivae moist. Oral mucosa moist. HEART: Normal S1, S2. LUNGS: Clear to auscultation. ABDOMEN: Soft, flat, nontender, nondistended with good bowel sounds. EXTREMITIES: Without clubbing, cyanosis or edema. RECTAL: Deferred at this time. IMPRESSION: The patient with gastric ulceration that does not appear to be related to NSAID usage. H. pylori status has not been determined yet and she has not had any bowel movements. Tentatively, I did discuss the case at length with Dr. Mcdonnell this evening and also spoke with Dr. Beckford who believes that it would be reasonable to hold the aspirin at least for 2 weeks in order to permit opportunity for the gastric ulcers to heal. From discharge purposes, the patient will require outpatient evaluation in GI clinic with Dr. Arizmendi who has seen the patient in the past. An upper endoscopy in approximately 12 weeks to ensure gastric ulcer is healing is recommended. She should continue on Protonix 40 mg twice daily at least for 4-6 weeks and then daily thereafter. Hopefully, she can obtain a stool specimen for processing for H. pylori status. Aspirin can be resumed in a couple weeks. 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 I believe it is reasonable to do a followup cross-sectional imaging with MRI over the next several weeks to ensure that the cysts either have remained stable or decreased in size. This will be addressed with the patient with Dr. Arizmendi in GI clinic and if necessary endoscopic ultrasound at some point may be helpful to further characterize these structures. All questions answered.
--- NOTE | 2017-06-02 23:19 | Discharge Summary ---
Discharge Summary Date of Service Jun 02, 2017. Discharge Summary Admission Date: May 31, 2017 at 13:31 Discharge Date: Jun 02, 2017 Discharge Disposition: Home Principal Diagnosis: PUD, GI Bleeding, Acute blood loss anemia Problems/Secondary Diagnoses: Acute renal insufficiency Leukocytosis CAD Pancreatic IPMNs Procedures: EGD: - Z-line irregular, 32 cm from the incisors. - 2 cm hiatus hernia. - Non-bleeding gastric ulcers with a clean ulcer base (Juan Ramon Class III) but with stigmata of recent bleeding. - Normal examined duodenum. - Trace red heme noted in fundus washed and suctioned. - The examination was otherwise normal. - No specimens collected. Recommendation: - [facility]. - The findings and recommendations were discussed with the patient's family--son. - Will need to be on Protonix 40 mg bid as outpt and off ASA ideally for 6-8 weeks with repeat EGD then. Check stool for H.pylori. No biopsied done secondary to recent bleeding. Chest xray-negative Consultations: Gastroenterology Medication Reconciliation New Medications: Pantoprazole Sodium (Protonix) 40 Mg Tab 40 MG PO BID, #60 TAB Changed Medications: Aspirin (Aspirin) 81 Mg Tab 81 MG PO QPM for 30 Days (Medication details modified) DO NOT TAKE UNTIL 06/14/17 Continued Medications: Atorvastatin (Lipitor) 40 Mg Tab 40 MG PO QPM, TAB Referrals At Discharge Follow up Referrals: [employer] Referral - Within a Month with Keith Raygoza M.D. Physician Referral - Within 1-2 Weeks with Zhou Denise M.D. Discharge Exam Review of Systems: Constitutional: No fever, No chills Eyes: No problem reported ENT: No problem reported Respiratory: No problem reported Cardiovascular: No chest pain Abdomen: + constipation, No pain, No nausea, No vomiting, No diarrhea, No GI bleeding Musculoskeletal: No problem reported Genitourinary - Female: No problem reported Neurologic: No problem reported Psychiatric: No problem reported Endocrine: No problem reported Hematologic / Lymphatic: No problem reported Integumentary: No problem reported Physical Exam: General Appearance: WD/WN, no apparent distress Eyes: normal inspection, sclerae normal ENT: hearing grossly normal Neck: trachea midline Respiratory/Chest: lungs clear, normal breath sounds, no respiratory distress, no accessory muscle use Cardiovascular: regular rate, rhythm, no edema, no gallop, no murmur, normal peripheral pulses Abdomen / GI: normal bowel sounds, non tender, soft, no organomegaly Extremities: normal inspection, no calf tenderness, normal capillary refill , no pedal edema Neurologic/Psychiatric: alert, normal mood/affect, oriented x 3 Skin: normal color, warm/dry, no rash Hospital Course This patient is an 81 y/o F who was admitted on 05/31 for melanotic stools and hematemesis, with anemia of acute blood loss in the setting of aspirin use for antiplatelet therapy Melanotic stools and hematemesis, anemia of acute blood loss in the setting of aspirin use for antiplatelet therapy. EGD with recently bleeding ulcers x 2 in stomach, no intervention needed.LFTs WNL INR WNL Hx of aspirin use, self d/c'd at onset of symptoms. SHe ws started on Protonix gtt here and had urgent EGD. Hgb dropped to 8.5 from 12 despite 1 unit PRBCs on 05/31. With hypotension to 80 systolic.Was transfused a second unit of PRBCs on 06/01 and Hgb improved to 9.9 and remained stable over the next 24 hours. She had no further GI bleeding during her stay and in fact, had no BM at all. H. pylori stool antigen will need to be collected at home. Supplies were given for her to do this. SHe was tolerating a regular diet and was stable for discharge to home with close GI follow up. She should remain off her ASA for [address] Raygoza discussed the case with pt's Ball Maker over the phone who was in agreement to hold ASA for this amount of time as she is years out from her cardiac stents. 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 SHould have MRI pancreas as an outpatient in near future. GI aware and will order at follow up visit. 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 No signs of infection CAD: hx of stents, will need to resume aspirin in 2 weeks as above -continue statin Total Time Spent: Greater than 30 minutes This includes examination of the patient, discharge planning, medication reconciliation, and communication with other providers. Discharge Instructions Please refer to the electronic Patient Visit Report (Discharge Instructions) for additional information. Follow-Up PCP within 1-2 weeks GI within 1 month Repeat EGD in 6-8 weeks Additional Copies To Zhou Denise M.D.; Keith Raygoza M.D.
--- NOTE | 2017-06-03 07:25 | EDITING REQUIRED CODING QUERY ---
CODING QUERY To promote full compliance with coding requirements relating to patient care, provider participation is requested in all cases of pre k teacher uncertainty. Please assist us with the question(s) below: Coding Question(s): Please clarify below, in your clinical opinion, regarding the source GI bleeding. (x ) GI Bleeding is likely from the Gastric Ulcers ( ) GI Bleeding is from unknown likely source ( ) GI Bleeding is from other likely source - Specify ( ) There was no GI Bleeding being treated or evaluated Physician's Response(s): Thank you Fani Barnard Principal Diagnosis: "_that condition established after study, to be chiefly responsible for occasioning the admission of the patient to the hospital for care." Co-Existing Principal Diagnosis: "_when two or more diagnoses equally meet the criteria for principal diagnosis as determined by the circumstances of admission, diagnostic work up, and/or therapy provided, and the Alphabetic Index, Tabular List, or another coding guideline does not provide sequencing direction, any one of the diagnoses may be sequenced first." "When the physician has documented what appears to be a current diagnosis in the body of the record, but has not included the diagnosis in the final diagnostic statement, the physician should be asked whether the diagnosis should be added." (Source Coding [facility] 2 QTR90. p3-4)
== END 2017-06-02 18:10 | disposition home or self-care (01) | DRG 813 ==
LOC: EDBD 11:46 → C.EDB 11:49 → C.2T 13:31 → ENRESERV 13:55
PROVIDERS: ADMIT Family Medicine; ATTEND Family Medicine
PROC: 0DJ08ZZ Inspection of Upper Intestinal Tract, Via Natural or Artificial Opening Endoscopic (ICD-10-PCS; principal; 2017-05-31 15:00)
DX: D68.9 Coagulation defect, unspecified (principal); K25.4 Chronic or unspecified gastric ulcer with hemorrhage; D62 Acute posthemorrhagic anemia; C25.3 Malignant neoplasm of pancreatic duct; T39.015A Adverse effect of aspirin, initial encounter; N28.9 Disorder of kidney and ureter, unspecified; E86.0 Dehydration; D72.829 Elevated white blood cell count, unspecified; K44.9 Diaphragmatic hernia without obstruction or gangrene; I25.10 Atherosclerotic heart disease of native coronary artery without angina pectoris; E78.5 Hyperlipidemia, unspecified; Z79.899 Other long term (current) drug therapy; Z79.82 Long term (current) use of aspirin; Z95.5 Presence of coronary angioplasty implant and graft

== ENCOUNTER → 2017-06-04 | Outpatient (CLI) | payer OTHER ==
[~2017-06-04] MED LIST changes: +PANT40TA PO
== END | disposition home or self-care (01) ==
LOC: C.LABSPEC 17:36
PROVIDERS: ATTEND Family Medicine
DX: K27.9 Peptic ulcer, site unspecified, unspecified as acute or chronic, without hemorrhage or perforation (principal)

== ENCOUNTER → 2017-06-30 | Outpatient (CLI) | payer OTHER ==
[~2017-06-30] MED LIST changes: -BROM0.07 OPR; -COEN200C4 PO; +GADAVIST IV PRN; -GLUCTAB7 PO; -MULT-506 PO; -PANT40TA PO; -PRED1SUS3 OPR
--- NOTE | 2017-06-30 11:36 | DIAGNOSTIC IMAGING REPORT ---
ABDOMEN COMBO CLINICAL HISTORY: 81 years-old Female presenting with IPMN, right-sided abdominal discomfort, history of bleeding ulcer. TECHNIQUE: Multisequence, multiplanar MR imaging of the abdomen was performed before and after the administration of intravenous contrast. IV contrast: 5.5 mL of Gadavist. COMPARISON: MR from 01/12/2015. FINDINGS: Localizer images: Unremarkable. Subcentimeter T2 hyperintense nonenhancing lesion noted in the pancreatic head, which measures 4 mm (series 16 image 13). This is immediately adjacent to the main pancreatic duct and likely has a side branch connection. Additional similar-appearing lobular region at the pancreatic neck measuring 7 mm (series 17 image 70) with a clear communication to the ductal system. An additional smaller cystic lesion may also be present in the uncinate. These lesions have not significantly changed since the prior exam. No pancreatic ductal dilatation. No suspicious nodular enhancement. Adjacent duodenal diverticulum noted. Lung bases clear. No pericardial or pleural effusion. Liver demonstrates normal morphology. No focal lesion. No evidence of hepatic steatosis. Conventional hepatic arterial anatomy. Patent hepatic vasculature. Gallbladder normal. No intrahepatic or or extrahepatic biliary ductal dilatation. Conventional intrahepatic biliary bifurcation. Multiple left parapelvic simple cysts as well as a subcentimeter cortical simple cyst noted. No hydronephrosis. Moderate stool burden. No bowel obstruction. No free fluid. Aorta and IVC patent. No gross lymphadenopathy. Degenerative changes of the spine noted at L2-3. Visualized portions of the pelvis are normal. IMPRESSION: Stable appearance of multiple small cystic lesions in the pancreatic neck, head, and uncinate process. The largest of these lesions measures 7 mm. No suspicious features. 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 These have been stable for over 2 years. Per the [employer] incidental findings committee recommendations, no further follow-up is warranted as these would be considered benign. Electronically signed by: Da Waite M.D. 06/30/2017 11:35 AM Dictated Date/Time: 06/30/2017 11:24 AM
== END | disposition home or self-care (01) ==
LOC: C.MRI 09:50
PROVIDERS: ATTEND Internal Medicine Gastroenterology
DX: D49.0 Neoplasm of unspecified behavior of digestive system (principal)